=== PATIENT | male | born 1985 | race African-American/Black ===

== ENCOUNTER 2020-08-22 18:12 | Emergency (ER) | payer SELFPAY ==
[2020-08-22 18:16] VITALS: BP 151/90; PULSE 92; RESP 16; TEMP 36.8; O2SAT 95; BMI 28.8
[2020-08-22 18:55] LABS: Add Urine Microscopic? NO
[2020-08-22 18:59] LABS: Bilirubin Urine Neg (Negative); Blood Urine Neg (Negative); Glucose Urine UA Norm (Normal); Ketones Urine 1+ (Negative); Leukocyte Esterase Urine Negative (Negative); Nitrate Urine Negative (Negative); Protein Urine Neg (Negative); Urine Appearance Clear (CLEAR); Urine Color Yellow (Yellow); Urobilinogen Urine 4 mg/dL (Negative); pH Urine 7 (5-7)
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
[2020-08-22 19:20] VITALS: BP 112/92; PULSE 80; RESP 18; O2SAT 96
== END 2020-08-22 19:20 | disposition home or self-care (01) ==
PROVIDERS: Emergency Medicine; Emergency Provider Nurse Practitioner Family
DX: R31.9 Hematuria, unspecified (principal)
CPT/HCPCS: 81003; 99282